=== PATIENT | male | born 1965 | race Asian ===

== ENCOUNTER → 2017-11-25 | Day surgery (SDC) | payer MEDICARE, MEDICAID ==
[~2017-11-25] MED LIST: LIDOCAINE HCL 1% 20ML VIAL (Pyxis) INJ ONE; SODIUM BICARBONATE 4% (2.4MEQ) 5ML VIAL IV ONE
== END | disposition home or self-care (01) ==
LOC: RAD 07:49
PROVIDERS: ATTEND Internal Medicine Endocrinology, Diabetes & Metabolism
DX: E04.2 Nontoxic multinodular goiter (principal)
CPT/HCPCS: 10022; 76942; 88172; 88173; J3490